=== PATIENT | female | born 1975 | race African-American/Black ===

== ENCOUNTER 2017-04-24 09:01 | Outpatient (CLI) | payer OTHER ==
[2017-04-24 10:31] LABS: #Basophils 0.1 thou/uL (0.0-0.2); #Eosinphils 0.2 thou/uL (0.0-0.7); #Lymphocytes 1.3 thou/uL (1.20-3.40); #Monocytes 0.2 thou/uL (0.11-0.59); #Neutrophils 1.9 thou/uL (1.40-6.50); %Basophils 1.5 % (0.0-1.0); %Eosinophils 6.3 % (0.0-10.0); %Lymphocytes 35.1 % (21.0-51.0); %Monocytes 5.5 % (0.0-10.0); Hematocrit 41.4 % (36.0-47.0); Red Blood Cell (RBC) Count 4.31 mill/uL (4.20-5.40); White Blood Cell (WBC) Count 3.7 thou/uL (4.8-10.8)
[2017-04-24 10:48] LABS: Anion Gap 14 mmol/L (10-20); BUN (Urea Nitrogen) 14 mg/dL (7.0-18.7); Calc. Creatinine Clearance 0 mL/min (70-130); Calcium 9.7 mg/dL (7.8-10.44); Carbon Dioxide 23 mmol/L (22-29); Chloride 105 mmol/L (98-107); Estimated GFR-MDRD 81
--- NOTE | 2017-04-27 06:50 | EKG ---
Test Reason : Blood Pressure : / mmHG Vent. Rate : 056 BPM Atrial Rate : 056 BPM P-R Int : 176 ms QRS Dur : 090 ms QT Int : 422 ms P-R-T Axes : 061 053 004 degrees QTc Int : 407 ms Sinus bradycardia with sinus arrhythmia Otherwise normal ECG When compared with ECG of 03-MAY-2015 18:29, No significant change was found Confirmed by MANNY HOPPER ([id number]) on 04/27/2017 6:49:40 AM Referred By: MICHELLE Confirmed By:MANNY HOPPER
== END 2017-04-24 09:02 | disposition home or self-care (01) ==
LOC: LABBT 09:01
PROVIDERS: ATTEND Orthopaedic Surgery
DX: Z01.818 Encounter for other preprocedural examination (principal); M23.91 Unspecified internal derangement of right knee
CPT/HCPCS: 80048; 85025; 93005; 93010

== ENCOUNTER 2017-04-26 05:55 | Day surgery (SDC) | payer OTHER ==
[2017-04-24 09:23] VITALS: BMI 33.7
[2017-04-26] MEDS ORDERED: Diprivan 20 ML ONE ×2 (06:45→08:13)
[2017-04-26] MEDS ORDERED: Fentanyl 100 MCG/2 ML VIAL ONE (07:42)
[2017-04-26] MEDS ORDERED: Ondansetron HCl/PF 4 MG/2 ML Vial ONE (07:49)
[2017-04-26] MEDS ORDERED: Lidocaine 2% PF 10 ML AMP (For Epidural Use) ONE (07:49)
[2017-04-26] MEDS ORDERED: Dexamethasone 20 MG/5 ML VIAL ONE (07:49)
[2017-04-26] MEDS ORDERED: Propofol 200 MG/20 ML VIAL ONE (07:49)
[2017-04-26] MEDS ORDERED: Ketorolac Tromethamine 30 MG/ML VIAL ONE (07:49)
--- NOTE | 2017-04-26 09:08 | OP ---
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 PROCEDURE PERFORMED: Right knee arthroscopy with debridement and shaving of unstable chondral flaps of the trochlea, grade 4 lesion as well as removal of many small cartilaginous loose bodies. SURGEON: Sebastian Miles M.D. DEAN OF EDUCATION: None. BLOOD LOSS: Minimal. COMPLICATIONS: None. ANESTHESIA: She had a general anesthetic with local knee block. DISPOSITION: She went to the recovery room in stable condition. INDICATIONS: A 41-year-old female who comes in complaining of pain, swelling, and catching in the k nee. MRI scan showed her to have chondral injuries and multiple loose bodies and at this time, she opted to have surgery to remove these: PROCEDURE IN DETAIL: After all appropriate consent forms were explained and signed, Ms. Robb was taken to the operating room and at this time was given general anesthetic. Once anesthesia was appr opriate, the tourniquet was placed on the right thigh and the leg was then prepped and draped in sta ndard surgical fashion. Limb was exsanguinated and tourniquet taken up to 300 mmHg. An inferolater al portal was established and the scope was placed into the knee joint. A needle localization techn ique was then used to make a medial working portal. Diagnostic arthroscopy commenced in the notch. The ACL and PCL were probed and found to be intact. The medial compartment was in good condition. Medial meniscus was probed superiorly and inferiorly and found to be intact. The tibial plateau wa s in good condition. The shaver was used to remove multiple cartilaginous loose bodies that had wor ked its way underneath the medial meniscus. We then turned our attention to the lateral compartment . There were some grade 2 changes on the tibial plateau. No loose chondral flaps were noted. Agai n, there were multiple lateral compartment cartilaginous loose bodies. These were removed with the shaver. Popliteus tendon meniscus were probed and found to be intact. At this time, the gutters we re swept through, both gutters had multiple cartilaginous loose bodies and these were removed with t he shaver and then the patellofemoral joint was evaluated. There was 1.5 x 0.5 cm grade 4 lesion in the center of the trochlea, unstable chondral flaps were taken down with the shaver and multiple ca rtilaginous loose bodies were removed from the suprapatellar pouch at this time. The patella itself had some crabmeat appearance, but no unstable chondral flaps were noted. At this time, the scope w as removed, the knee was drained. Portals were closed with simple nylon stitch. Bulky sterile dres sing was applied and the tourniquet was let down. Toes pinked up nicely. She was awakened and take n to recovery in stable condition. All counts were correct at the end of the case. She received pr eoperative IV antibiotics.
[2017-04-26] MEDS ORDERED: HYDROcodone/Acetaminophen 5/325 mg Tablet ONE (11:00)
[2017-04-26] MEDS ORDERED: traMADol HCl 50 MG TAB ONE ×2 (11:08)
== END 2017-04-26 11:56 | disposition home or self-care (01) ==
LOC: SDC 05:55
PROVIDERS: ATTEND Orthopaedic Surgery
DX: M23.91 Unspecified internal derangement of right knee (principal); Z88.5 Allergy status to narcotic agent; Z88.8 Allergy status to other drugs, medicaments and biological substances; Z88.2 Allergy status to sulfonamides; Z91.048 Other nonmedicinal substance allergy status; Z90.710 Acquired absence of both cervix and uterus; Z98.51 Tubal ligation status; Z98.890 Other specified postprocedural states
CPT/HCPCS: G8978-GP-CK; G8979-GP-CK; G8980-GP-CK; J1100; J1885; J2001; J2405; J2704; J3010

== ENCOUNTER 2018-11-13 08:05 | Outpatient (CLI) | payer OTHER ==
--- NOTE | 2018-11-13 08:54 | MMO ---
Bilateral MAMMO Bilat Screen [facility]. CLINICAL HISTORY: Patient is 43 years old and is seen for screening. The patient has no family history of breast cancer. The patient has no personal history of cancer. VIEWS: The views performed were: bilateral craniocaudal and bilateral mediolateral oblique. FILMS COMPARED: The present examination has been compared to a prior imaging study performed at [facility] on 10/13/2016. This study has been interpreted with the assistance of computer-aided detection. MAMMOGRAM FINDINGS: The breasts are heterogeneously dense, which could obscure a lesion on mammography. There are no suspicious masses, suspicious calcifications, or new areas of architectural distortion. IMPRESSION: THERE IS NO MAMMOGRAPHIC EVIDENCE OF MALIGNANCY. A ROUTINE FOLLOW-UP MAMMOGRAM IN 1 YEAR IS RECOMMENDED. ACR BI-RADS Category 1 - Negative MAMMOGRAPHY NOTE: 1. A negative mammogram report should not delay a biopsy if a dominant of clinically suspicious mass is present. 2. Approximately 10% to 15% of breast cancers are not detected by mammography. 3. Adenosis and dense breasts may obscure an underlying neoplasm.
== END 2018-11-13 08:06 | disposition home or self-care (01) ==
LOC: SCSMAMMO 08:05
PROVIDERS: ATTEND Family Medicine
DX: Z12.31 Encounter for screening mammogram for malignant neoplasm of breast (principal)
CPT/HCPCS: 77067

== ENCOUNTER 2019-04-27 19:45 | Emergency (ER) | payer OTHER ==
[2019-04-27] MEDS ORDERED: Ketorolac Tromethamine 30 MG/ML VIAL ONE (20:19)
--- NOTE | 2019-04-27 20:22 | RAD ---
RIGHT HIP: 04/27/19 Two views. HISTORY: Fall. No evidence of fracture. No osseous abnormality. IMPRESSION: No acute abnormality. POS: OFF
--- NOTE | 2019-04-27 20:25 | RAD ---
RIGHT KNEE: 04/27/19 Total of five views. HISTORY: Fall. No fracture. Minimal degenerative change. No significant joint effusion apparent. IMPRESSION: No acute abnormality. POS: OFF
== END 2019-04-27 21:20 | disposition home or self-care (01) ==
LOC: SCSER 19:45
DX: M25.461 Effusion, right knee (principal); M25.551 Pain in right hip; I11.0 Hypertensive heart disease with heart failure; I50.9 Heart failure, unspecified; I25.10 Atherosclerotic heart disease of native coronary artery without angina pectoris; Z85.858 Personal history of malignant neoplasm of other endocrine glands; Z79.899 Other long term (current) drug therapy
CPT/HCPCS: 96372; J1885

== ENCOUNTER 2019-05-22 12:30 | Outpatient (CLI) | payer OTHER ==
[2019-05-22 17:23] LABS: #Basophils 0.1 thou/uL (0.0-0.2); #Eosinphils 0.4 thou/uL (0.0-0.7); #Lymphocytes 2.1 thou/uL (1.20-3.40); #Monocytes 0.4 thou/uL (0.11-0.59); #Neutrophils 3.1 thou/uL (1.40-6.50); %Basophils 1.4 % (0.0-1.0); %Monocytes 6.4 % (0.0-10.0); %Neutrophils 51.1 % (42.0-75.0); Hemoglobin 13.1 g/dL (12.0-16.0); Mean Corpuscular HGB CONC 34.3 g/dL (32.0-36.0); Mean Corpuscular Hemoglobin 32.3 pg (27.0-31.0); Mean Corpuscular Volume 94.1 fL (78.0-98.0); Mean Platelet Volume 6.9 fL (7.4-10.4); Platelet Count 281 thou/uL (130-400); RBC Distribution Width 11.5 % (11.5-14.5); Red Blood Cell (RBC) Count 4.07 mill/uL (4.20-5.40); White Blood Cell (WBC) Count 6.1 thou/uL (4.8-10.8)
--- NOTE | 2019-05-23 16:41 | EKG ---
Test Reason : Blood Pressure : / mmHG Vent. Rate : 068 BPM Atrial Rate : 068 BPM P-R Int : 172 ms QRS Dur : 090 ms QT Int : 394 ms P-R-T Axes : 083 023 031 degrees QTc Int : 418 ms Normal sinus rhythm Cannot rule out Anterior infarct , age undetermined Abnormal ECG Confirmed by KENYA WILKES ([id number]) on 05/23/2019 4:41:02 PM Referred By: MIKAYLA Confirmed By:KENYA WILKES
== END 2019-05-22 12:31 | disposition home or self-care (01) ==
LOC: LABBT 12:30
PROVIDERS: ATTEND Orthopaedic Surgery
DX: Z01.818 Encounter for other preprocedural examination (principal); G56.01 Carpal tunnel syndrome, right upper limb
CPT/HCPCS: 85025; 93005; 93010

== ENCOUNTER 2019-05-24 05:49 | Day surgery (SDC) | payer OTHER ==
[2019-05-22 17:12] VITALS: BMI 34.8
[2019-05-24] MEDS ORDERED: Propofol 500 MG/50 ML VIAL ONE (06:22)
[2019-05-24] MEDS ORDERED: Lidocaine 1% (PF) 30 ML VIAL ONE (06:43)
[2019-05-24] MEDS ORDERED: Fentanyl 100 MCG/2 ML VIAL ONE (07:33)
[2019-05-24] MEDS ORDERED: HYDROcodone/Acetaminophen 5/325 mg Tablet ONE (09:11)
[2019-05-24] MEDS ORDERED: Ondansetron PF 4 MG/2 ML Vial ONE (11:30)
--- NOTE | 2019-05-24 12:28 | OP ---
DATE OF PROCEDURE: 05/24/2019 PREOPERATIVE DIAGNOSES: Right carpal tunnel syndrome. POSTOPERATIVE DIAGNOSIS: Right carpal tunnel syndrome. PROCEDURES PERFORMED: 1. Right open carpal tunnel release. 2. Placement of short-arm volar splint, right upper extremity. MUSEUM HOST/HOSTESS: None. ESTIMATED BLOOD LOSS: Minimal. COMPLICATIONS: None. ANESTHESIA: She had TIVA with local. DISPOSITION: She went to day stay in stable condition. INDICATIONS: This is a 43-year-old female, who has significant symptoms of carpal tunnel syndrome. This was confirmed on EMG/NCV and at this time, she wished for operative intervention. DESCRIPTION OF PROCEDURE: After all appropriate consent forms were explained and signed, the patient was taken back to the operating room and at this time was given IV sedation. A well-padded tourniquet was placed on the right arm and the arm was then prepped and draped in the standard surgical fashion. The incision was then drawn out and infiltrated with plain lidocaine. Limb was exsanguinated and tourniquet taken up to 250 mmHg. At this time, using Loupe magnification, a 15 blade was used to incise down through skin. Bipolar cautery was used to coagulate any brisk venous bleeding. We then placed a small hemostat to protect the underlying median nerve and transected the transverse carpal ligament using multiple 15 blades as well as scissors. Once this was done, a small finger was inserted to palpate for any remaining bands. At this time, a moist Ray-Tyler sponge was placed into the wound. Tourniquet was let down and pressure was held. Bipolar cautery used to coagulate any brisk venous bleeding. The wound was then irrigated with saline solution and we then evaluated the nerve. The nerve was found to be significantly injected, the nerve was intact, there were no masses noted, and the underlying flexor tendons were in good condition. At this time, we irrigated and dried the wound. We then placed multiple nylon stitches to close the incision. A bulky sterile hand dressing and a small volar splint were then placed. The patient was then awakened and taken to recovery in stable condition. All counts were correct at the end of the case. The patient received preoperative IV antibiotics. Job ID: [id number]
== END 2019-05-24 09:30 | disposition home or self-care (01) ==
LOC: SDC 05:49
PROVIDERS: ATTEND Orthopaedic Surgery
PROC: 01N50ZZ Release Median Nerve, Open Approach (ICD-10-PCS; principal; 2019-05-24)
DX: G56.01 Carpal tunnel syndrome, right upper limb (principal); I10 Essential (primary) hypertension; E78.5 Hyperlipidemia, unspecified; Z79.899 Other long term (current) drug therapy; Z88.2 Allergy status to sulfonamides; Z88.5 Allergy status to narcotic agent; Z91.048 Other nonmedicinal substance allergy status
CPT/HCPCS: J0690; J2001; J2405; J2704; J3010

== ENCOUNTER 2023-05-03 13:21 | Outpatient (CLI) | payer BC | END 2023-05-03 13:22 | disposition home or self-care (01) | LOC: MRI 13:21 → BICMRI 13:22 | PROVIDERS: ATTEND Orthopaedic Surgery | DX: M25.561 Pain in right knee (principal); M22.41 Chondromalacia patellae, right knee; M25.461 Effusion, right knee ==

== ENCOUNTER 2023-09-27 14:42 | Outpatient (CLI) | payer BC ==
[2023-09-27 15:51] LABS: #Basophils 0.1 10x3/uL (0.0-0.2); #Eosinphils 0.2 10x3/uL (0.0-0.5); #Monocytes 0.4 10x3/uL (0.0-1.1); #Neutrophils 2.9 10x3/uL (1.5-8.4); %Eosinophils 4.1 % (0.0-6.0); %Lymphocytes 28.2 % (18.0-47.0); %Monocytes 7.3 % (0.0-10.0); %Neutrophils 59.2 % (40.0-75.0); Hematocrit 35.7 % (34.9-44.5); Hemoglobin 12.2 g/dL (12.0-15.5); Mean Corpuscular HGB CONC 34.2 g/dL (32.0-36.0); Mean Corpuscular Hemoglobin 31.9 pg (27.0-33.0); Mean Corpuscular Volume 93.5 fl (81.6-98.3); Platelet Count 273 10x3/uL (150-450); RBC Distribution Width 13.1 % (11.5-14.5); Red Blood Cell (RBC) Count 3.82 10x6/uL (3.90-5.03); White Blood Cell (WBC) Count 4.8 10x3/uL (3.5-10.5)
[2023-09-27 16:16] LABS: INR-International Normal Ratio 0.9; Prothrombin Time 10.1 sec (9.5-12.1)
[2023-09-27 16:17] LABS: Anion Gap 12 mmol/L (10-20); BUN (Urea Nitrogen) 11 mg/dL (7.0-18.7); Calc. Creatinine Clearance 0 mL/min (70-130); Calcium 9.2 mg/dL (7.8-10.44); Carbon Dioxide 24 mmol/L (22-29); Chloride 106 mmol/L (98-107); Estimated GFR 98; Glucose 101 mg/dL (70-105); Potassium 3.6 mmol/L (3.5-5.1); Sodium 138 mmol/L (136-145)
[2023-09-27 17:19] LABS: Bilirubin Neg (Negative); Blood, Urine Negative (Negative); Clarity Clear (Clear); Glucose, Urine (Dipstick) Normal (Negative); Ketone, Urine Negative (Negative); Leukocyte Negative (Negative); Nitrite Negative (Negative); Protein, Urine (Dipstick) 15 mg/dl (Neg-Trace); Urobilinogen Normal mg/dL (Less than 2)
== END 2023-09-27 14:43 | disposition home or self-care (01) ==
LOC: LABBT 14:42
PROVIDERS: ATTEND Orthopaedic Surgery
DX: Z01.818 Encounter for other preprocedural examination (principal); M17.11 Unilateral primary osteoarthritis, right knee
CPT/HCPCS: 71046; 80048; 81003; 85025; 85610; 86850; 86900; 86901; 87081; 93005; 93010

== ENCOUNTER 2023-10-02 05:35 | Observation (INO) | payer BC ==
[2023-10-02] MEDS ORDERED: Tranexamic Acid 1,000 MG/10 ML VIAL ONE (06:00)
[2023-10-02] MEDS ORDERED: Lidocaine 1% MPF 2 ML VIAL ONE (06:00)
[2023-10-02] MEDS ORDERED: CEFAZOLIN 2 GM VIAL ONE (06:00)
[2023-10-02] MEDS ORDERED: Vancomycin (BATCH) 1.5 GM/300 ML BAG ONE (06:00)
[2023-10-02] MEDS ORDERED: Sodium Chloride 0.9% 200 ML ONE (06:00)
[2023-10-02] MEDS ORDERED: fentaNYL PF 100 MCG/2 ML SYRINGE ONE ×3 (06:23→08:36)
[2023-10-02] MEDS ORDERED: Midazolam HCl 2 mg/2 ml Vial ONE (06:23)
[2023-10-02] MEDS ORDERED: PROPOFOL 20 ML ONE (06:23)
[2023-10-02] MEDS ORDERED: Bupivacaine PF 0.5% 30 ML VIAL ONE ×2 (06:26→06:31)
[2023-10-02] MEDS ORDERED: Ropivacaine 2% HCl/PF (20 MG/10 ML VIAL) ONE (07:20)
[2023-10-02] MEDS ORDERED: Ropivacaine 0.5% HCl/PF (150 MG/30 ML VIAL) ONE (07:20)
[2023-10-02] MEDS ORDERED: oxyCODONE 5 MG TAB PO PRN (08:05)
[2023-10-02] MEDS ORDERED: fentaNYL 50 mcg/mL 1 mL Vial SLOW IVP PRN (08:06)
[2023-10-02] MEDS ORDERED: Ropivacaine 0.2% 550 ML 550 ML NERVE BLCK SCH (08:15)
[2023-10-02] MEDS ORDERED: Promethazine HCl 25 MG/ML VIAL IM PRN ×3 (08:15→09:23)
[2023-10-02] MEDS ORDERED: Ondansetron PF 4 MG/2 ML Vial IVP PRN ×2 (08:15→09:23)
[2023-10-02] MEDS ORDERED: Zolpidem Tartrate 5 MG TAB PO PRN ×2 (08:15→09:23)
[2023-10-02] MEDS ORDERED: traMADol HCl 50 MG TAB PO PRN ×2 (08:15)
[2023-10-02] MEDS ORDERED: Meperidine HCl/PF 25 MG/ML VIAL SLOW IVP PRN (08:23)
[2023-10-02] MEDS ORDERED: HYDROmorphone 2 MG/ML VIAL SLOW IVP PRN (08:23)
[2023-10-02] MEDS ORDERED: Ondansetron HCl/PF 4 MG/2 ML Vial IVP PRN (08:23)
[2023-10-02] MEDS ORDERED: Dexamethasone 4 mg/ml Vial ONE (08:24)
[2023-10-02] MEDS ORDERED: Ketorolac Tromethamine 30 MG (1 mL) VIAL ONE (08:24)
[2023-10-02] MEDS ORDERED: Ondansetron PF 4 MG/2 ML Vial ONE (08:24)
[2023-10-02] MEDS ORDERED: diphenhydrAMINE 25 MG CAP PO PRN (09:23)
[2023-10-02] MEDS ORDERED: Acetaminophen 325 MG TAB PO PRN (09:23)
[2023-10-02] MEDS ORDERED: Meperidine HCl/PF 25 MG (1 mL) VIAL ONE (09:30)
[2023-10-02] MEDS ORDERED: Tranexamic Acid 1,000 MG in Sodium Chloride 0.9% 100 ML IVPB SCH (09:30)
[2023-10-02] MEDS ORDERED: fentaNYL 50 mcg/mL 1 mL Vial ONE ×3 (09:31→10:09)
[2023-10-02 11:19] VITALS: BMI 36.2
[2023-10-02] MEDS: Meperidine HCl/PF 25 MG (1 mL) VIAL SLOW IVP SCH (11:43)
[2023-10-02] MEDS: Acetaminophen 500 MG TAB PO SCH (11:58)
[2023-10-02] MEDS: Sodium Chloride 0.9% 1,000 ML IV SCH (11:58)
[2023-10-02] MEDS: Ketorolac Tromethamine 30 MG (1 mL) VIAL IVP SCH (11:59)
[2023-10-02] MEDS: CEFAZOLIN 2 GM in Sodium Chloride 0.9% 100 ML IVPB SCH (15:19)
[2023-10-02] MEDS: oxyCODONE 5 MG TAB PO PRN (15:47)
[2023-10-02] MEDS: Vancomycin (BATCH) 1.5 GM in Premix 1 BAG IVPB SCH (18:13)
[2023-10-02] MEDS: Ferrous Gluconate 324 MG TAB PO SCH (20:24)
[2023-10-02] MEDS: Aspirin 81 mg Enteric Coated Tablet PO SCH (20:24)
[2023-10-02] MEDS: Senokot S 8.6-50 MG TAB PO SCH (20:24)
[2023-10-03 04:29] LABS: Hematocrit 34.2 % (36.0-47.0); Hemoglobin 11.2 g/dL (12.0-16.0); Mean Corpuscular HGB CONC 32.7 g/dL (32.0-36.0); Mean Corpuscular Hemoglobin 31.3 pg (27.0-31.0); Mean Corpuscular Volume 95.5 fl (78.0-98.0); Mean Platelet Volume 10.2 fL (7.4-10.4); Platelet Count 264 10x3/uL (130-400); RBC Distribution Width 13.4 % (11.5-14.5); Red Blood Cell (RBC) Count 3.58 mill/uL (4.20-5.40)
[2023-10-03] MEDS: Multivitamin W/ Minerals 1 TAB PO SCH (08:07)
[2023-10-03] MEDS: Amlodipine 5 MG TAB PO SCH (08:07)
[2023-10-03 12:51] VITALS: BP 150/73; TEMP 98
== END 2023-10-03 14:22 | disposition home or self-care (01) ==
LOC: SDC 05:35 → SURG A 10:35
PROVIDERS: ADMIT Orthopaedic Surgery; ATTEND Orthopaedic Surgery
PROC: 0SRC0JZ Replacement of Right Knee Joint with Synthetic Substitute, Open Approach (ICD-10-PCS; principal; 2023-10-03)
DX: M17.11 Unilateral primary osteoarthritis, right knee (principal); M23.91 Unspecified internal derangement of right knee; M22.41 Chondromalacia patellae, right knee; E78.5 Hyperlipidemia, unspecified; I11.0 Hypertensive heart disease with heart failure; I50.30 Unspecified diastolic (congestive) heart failure; Z98.890 Other specified postprocedural states; Z90.710 Acquired absence of both cervix and uterus; Z88.2 Allergy status to sulfonamides; Z91.048 Other nonmedicinal substance allergy status
CPT/HCPCS: 36415; 85027; A4306; C1713; C1776; J0665; J1100; J1885; J2175; J2250; J2405; J2704; J2795; J3010; J3370; J3490; J7050